=== PATIENT | female | born 1975 | race Caucasian/White ===

== ENCOUNTER 2016-08-10 09:12 | Emergency (ER) | payer OTHER ==
--- NOTE | ~2016-08-10 | ER ---
PATIENT'S NAME: MARK CUNNINGHAM AGE: 40 Y [address] ROOM: [place], [place] [address] LOCATION: ED ADMIT DATE: 08/10/2016 ER/Outpatient Report DISCHARGE DATE: 08/10/2016 FAMILY PHYSICIAN: Devon Zhang MD ATTENDING PHYSICIAN: Primitivo Tamayo Time of Arrival: 0912 hours. Time of Evaluation: 0915 hours. CHIEF COMPLAINT: Numbness and tingling. HISTORY OF PRESENT ILLNESS: The patient is a 40-year-old female who presents to the emergency department today with chief complaint of numbness and tingling. 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 She is on long-term chronic steroid use. She reports that she developed some numbness and tingling that started about 7 days. She has numbness on her core as well as all 4 extremities. She did have a laceration that was repaired in her left eyebrow. She does report symptoms are currently 4 to 5 out of 10 in severity. She does report some chest pain which she reports is her "diaphragm." The patient did have some nausea and vomiting last weekend, not now. Denies any fevers or chills. No back pain. No diarrhea. No headache. PAST MEDICAL HISTORY: Lennox-Danlos syndrome, long-term steroid use, chronic pain, and chronic nausea. PAST SURGICAL HISTORY: Bilateral shoulder. SOCIAL HISTORY: The patient denies any tobacco, alcohol, or illicit drug use. ALLERGIES: . MEDICATIONS: Please see list. PRIMARY CARE DOCTOR: Devon Zhang MD. REVIEW OF SYSTEMS: All systems are reviewed by myself and are negative with the exception of PATIENT'S NAME: MARK CUNNINGHAM AGE: 40 Y [address] ROOM: [place], [place] [address] LOCATION: ED ADMIT DATE: 08/10/2016 ER/Outpatient Report DISCHARGE DATE: 08/10/2016 FAMILY PHYSICIAN: Devon Zhang MD ATTENDING PHYSICIAN: Primitivo Tamayo those discussed in HPI and past medical history. PHYSICAL EXAMINATION: VITAL SIGNS: Weight 66.8 kg. Blood pressure 134/77, pulse 119, respiratory rate 18, temperature 99.0, and oxygen saturation 93% on room air. GENERAL: The patient is a 40-year-old female who appears stated age, in no acute distress. HEENT: Head: Normocephalic, atraumatic. Pupils are equal, round, and reactive to light and accommodation. Extraocular motions are intact. Nares are patent bilaterally. TMs are clear. Oropharynx is clear. NECK: Supple. There is no nuchal rigidity. CARDIOVASCULAR: Tachycardic. No murmurs, rubs, or gallops. LUNGS: Clear to auscultation bilaterally. No wheezes, rales, or rhonchi. ABDOMEN: Soft, nontender, and nondistended. No rebound, rigidity, or guarding. MUSCULOSKELETAL: The patient moves all 4 extremities. SKIN: Warm and dry without any rashes or lesions noted. LABORATORY DATA AND X-RAYS: EKG is obtained, is interpreted by myself at 0936 hours; sinus tachycardia with a rate of 107, normal axis, normal interval. No ST elevation, ST depression, or T-wave inversion. CBC is normal. CMP is normal. D-dimer is normal. Coags are normal. Urinalysis is negative. Urine hCG is negative. Magnesium is normal. CK, CK-MB, and troponin are normal. Chest x-ray shows no acute process. D-dimer is normal. IMPRESSION: 1. Numbness and tingling. 2. Chronic steroid use. 3. Initial visit. EMERGENCY DEPARTMENT COURSE: The patient is brought back to the examination room. Seen and evaluated by myself. IV is established. Laboratory analysis and imaging are obtained as described above. The patient has tachycardia. She is given a liter of normal saline. We have done a full workup. We have also given her a stress dose of hydrocortisone 100 mg IV. Her results are obtained. They are essentially unremarkable. The patient's heart rate has improved. I have discussed the results with the patient and her sister. She is feeling improved at this time. She has a nonsurgical abdominal exam. I have recommended close followup with the patient's primary care doctor as well as Endocrinology in 2- 3 days for re-evaluation. I have discussed return to care instructions including worsening symptoms or any other concerns to return to the emergency department as soon as possible. The patient is agreeable without further questions. PATIENT'S NAME: MARISA MARK A AGE: 40 Y [address] ROOM: [place] [id number] LOCATION: [facility] ADMIT DATE: 08/10/2016 ER/Outpatient Report DISCHARGE DATE: 08/10/2016 FAMILY PHYSICIAN: Devon Zhang MD ATTENDING PHYSICIAN: Primitivo Tamayo DISPOSITION: The patient is discharged home in good condition. DO JEFERSON CORDOVA/jessl /[id number] d: 08/10/16 1836 t: 08/12/16 1600, OUTPATIENT REPORT
[2016-08-10 09:48] LABS: BASOPHIL % 0.7 %; EOSINOPHIL # 0.1 K/uL (0.0-0.5); EOSINOPHIL % 1.2 %; HEMATOCRIT 37.5 % (33.0-46.0); HEMOGLOBIN 12.7 g/dL (11.0-15.0); IMMATURE GRANULOCYTE # 0.1 K/uL (0.0-0.3); LYMPHOCYTE # 1.5 K/uL (0.8-4.0); LYMPHOCYTE % 26.3 %; MCH 31.1 pg (27.0-34.0); MCHC 33.9 gm/dL (32.0-36.5); MCV 91.7 fl (83.0-98.0); MONOCYTE # 0.4 K/uL (0.0-1.0); MONOCYTE % 6.8 %; MPV 9.8 fl (9.4-12.4); NEUTROPHIL # (ANC) 3.7 K/uL (1.8-7.8); NRBC % 0 /100WBC (0-0.00); PLATELET COUNT 313 K/uL (150-450); RBC 4.09 M/uL (3.50-5.50); RDW-CV 13.1 % (11.9-14.6); WBC 5.7 K/uL (4.0-11.0)
[2016-08-10 09:57] LABS: INR - (THERAPEUTIC) 0.98 (0.92-1.07); PROTIME 10.3 SECONDS (9.8-11.4); PTT 29 SECONDS (25-32)
[2016-08-10 10:05] LABS: ALK PHOS 56 IU/L (33-138); ALT 20 IU/L (12-78); AST 12 IU/L (10-40); BLOOD UREA NITROGEN 7 mg/dL (6-24); CALCIUM 8.4 mg/dL (8.5-10.5); CHLORIDE 106 mMol/L (96-110); CO2 23 mMol/L (22-32); CPK 63 IU/L (21-215); CREATININE 0.8 mg/dL (0.5-1.1); ESTIMATED GFR (MDRD EQUATION) > 60; MAGNESIUM 2.2 mg/dL (1.8-2.6); SODIUM 141 mMol/L (135-145); TOTAL BILIRUBIN 0.4 mg/dL (0.0-1.5); TOTAL PROTEIN 6.9 g/dL (6.0-8.4)
[2016-08-10 10:09] LABS: BILIRUBIN URINE NEGATIVE (NEGATIVE); BLOOD URINE NEGATIVE /UL (NEGATIVE); GLUCOSE URINE NEGATIVE (NEGATIVE); KETONE URINE NEGATIVE (NEGATIVE); LEUKOCYTES URINE NEGATIVE /UL (NEGATIVE); NITRITE URINE NEGATIVE (NEGATIVE); PROTEIN URINE NEGATIVE (NEGATIVE); UROBILINOGEN URINE NORMAL (NORMAL)
[2016-08-10 10:11] LABS: COLOR URINE COLORLESS (YELLOW); TURBIDITY URINE CLEAR (CLEAR)
== END 2016-08-10 11:10 | disposition disaster alternative care site (69) ==
LOC: GMED 09:12
PROVIDERS: Emergency Medicine
DX: R20.0 Anesthesia of skin (principal); R20.2 Paresthesia of skin; Q79.6 Ehlers-Danlos syndromes; Z79.52 Long term (current) use of systemic steroids; Z88.8 Allergy status to other drugs, medicaments and biological substances
CPT/HCPCS: J1720; J7030

== ENCOUNTER → 2016-08-22 | Outpatient (CLI) | payer OTHER | LOC: GRAD 08:47 | DX: K59.00 Constipation, unspecified (principal); K82.0 Obstruction of gallbladder; R10.9 Unspecified abdominal pain; R11.0 Nausea ==